=== PATIENT | female | born 1940 | race Caucasian/White ===

== ENCOUNTER → 2017-09-27 | Outpatient (CLI) | payer BC | END | disposition home or self-care (01) | LOC: KCIC CT 12:08 | DX: J32.9 Chronic sinusitis, unspecified (principal) | CPT/HCPCS: 70486 ==

== ENCOUNTER → 2018-12-19 | Outpatient (CLI) | payer BC ==
[2015-01-09 14:31] VITALS: BP 123/71
[~2018-12-19] MED LIST: HYDR-2679 PO
--- NOTE | 2018-12-19 13:52 | KCIC ---
Examination: CT SOFT TISSUE NECK WO CONTRST History: Left ear pressure, left facial pain, evaluation for neck mass. Left-sided pain after treatment extraction recently. Comparison/Correlation: None Findings: Axial images of the neck were obtained without contrast. Imaging was performed from the level of the optic nerves and inferiorly to the level just superior to the aorticopulmonary window. Lack of IV contrast may limit detection of mass lesions. Minimal mucosal thickening of ethmoid air cells is noted. 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 External auditory canals are unremarkable. Mastoid air cells are clear. Pharynx is symmetric in appearance. Uvula and epiglottis are unremarkable. True and false cords are unremarkable. Parotid and submandibular glands are normal. No enlarged cervical lymph nodes. Thyroid gland is unremarkable. Moderate C5-6 disc space narrowing is present. Vertebral body heights are adequate. The patient is mostly edentulous. No fluid collections are identified about the mandible. Expected course of the facial nerve is unremarkable. Impression: No mass lesions or enlarged lymph nodes identified. No loculated collection. PQRS Compliance Statement: One or more of the following individualized dose reduction techniques were utilized for this examination: 1. Automated exposure control 2. Adjustment of the mA and/or kV according to patient size 3. Use of iterative reconstruction technique Electronically signed by: Keegan Figueroa MD (12/19/2018 1:49 PM) [facility]
== END | disposition home or self-care (01) ==
LOC: KCIC CT 11:30
PROVIDERS: ATTEND Family Medicine
DX: M48.02 Spinal stenosis, cervical region (principal); Z91.041 Radiographic dye allergy status
CPT/HCPCS: 70490

== ENCOUNTER → 2018-12-27 | Outpatient (CLI) | payer BC ==
[2015-01-09 14:31] VITALS: BP 123/71
--- NOTE | 2018-12-27 16:54 | KCIC ---
CT scan of the paranasal sinuses without contrast 12/27/2018 CLINICAL HISTORY: Chronic sinus pain. TECHNIQUE: Unenhanced, contiguous, 0.6 mm axial sections were obtained through the paranasal sinuses. 2 mm reconstructed sagittal, axial and coronal images were obtained. One or more of the following individualized dose reduction techniques were utilized for this study: 1. Automated exposure control. 2. Adjustment of the mA and/or kV according to patient size. 3. Use of iterative reconstruction technique. FINDINGS: Mild mucosal thickening is seen scattered throughout the ethmoid air cells bilaterally and the sphenoid sinus. The remaining paranasal sinuses are clear. No air-fluid level is seen. The mastoid air cells and middle ear cavities are well aerated and are clear. No air-fluid level is seen. The ostiomeatal units are patent bilaterally. There are small to moderate-sized navjot bullosa, left greater than right. IMPRESSION: Mild mucosal thickening is seen involving the ethmoid air cells along with the sphenoid sinus. The remaining paranasal sinuses are clear. No air-fluid level is seen. Electronically signed by: Sergio Charles MD (12/27/2018 4:51 PM) [place] [id number]
== END | disposition home or self-care (01) ==
LOC: KCIC CT 10:34
PROVIDERS: ATTEND Family Medicine
DX: J34.89 Other specified disorders of nose and nasal sinuses (principal); J32.9 Chronic sinusitis, unspecified
CPT/HCPCS: 70486

== ENCOUNTER → 2020-11-01 | Outpatient (CLI) | payer BC ==
[2015-01-09 14:31] VITALS: BP 123/71
--- NOTE | 2020-11-01 13:56 | KCIC ---
Bilateral digital screening mammograms with 3-D tomosynthesis: Reason for examination: Routine screening. Comparison is made to previous studies dated back to 05/07/2014. Bilateral mammograms in CC and oblique projections were obtained with 2-D imaging and 3-D tomosynthes is imaging on a Siemens Inspiration unit and reviewed on the workstation. Interpretation was made wit h the benefit of CAD. The skin and nipples show no abnormalities. No abnormal axillary lymph nodes are seen. The breast par enchyma is predominantly fatty. (Breast density: Category A.) There are no dominant masses, suspiciou s calcifications or architectural distortion. Benign calcifications are present. Impression: No evidence of malignancy. Recommend routine screening. BI-RAD Category 2: Benign. "Our facility is accredited by the [employer] Mammography Program." This patient's information has been entered into a reminder system for the patient to be notified wit h the results of her examination and a target date for the next mammogram. Electronically signed by: Rashida Mo MD (11/01/2020 1:54 PM) [id number]
== END ==
LOC: KCIC MAMMO 12:49
PROVIDERS: ATTEND Family Medicine
DX: Z12.31 Encounter for screening mammogram for malignant neoplasm of breast (principal)
CPT/HCPCS: 77063; 77067